=== PATIENT | female | born 1975 | race Caucasian/White ===

== ENCOUNTER 2018-08-24 15:15 | Emergency (ER) | payer OTHER ==
[~2018-08-24] VITALS: Ht 162.6 cm; Wt 109.3 kg
[~2018-08-24 15:15] MED LIST: ANTACID500 MG PO; IBUPROFEN 600600 M1 PO; MOBIC7.5 M1 PO; ROBAXIN 750 MG750 MG PO; ULTRAM 50MG TAB50 MG PO
[2018-08-24] MEDS ORDERED: NOHOMEMEDICATIONS (15:24)
[2018-08-24 15:49] LABS: ABSOLUTE BASOPHILS 0.1 thou/uL (0.0-0.2); ABSOLUTE EOSINOPHILS 0.1 thou/uL (0.0-0.7); ABSOLUTE LYMPHOCYTES 1.7 thou/uL (0.8-5.3); ABSOLUTE MONOCYTES 0.7 thou/uL (0.0-1.2); BASOPHILS 0.7 %; EOSINOPHILS 1.1 %; HEMOGLOBIN 13.3 gm/dL (12.0-15.0); LYMPHOCYTES 20.2 %; MCH 29.8 pg (26.0-34.0); MCHC 33.2 g/dL (28.0-37.0); MCV 89.8 fL (80.0-100.0); MONOCYTES 7.9 %; MPV 7.8 fl. (7.2-11.1); NUCLEATED RBCS 0 /100WBC; PLATELET COUNT* 404 thou/uL (150-400); POLYS 70.1 %; RBC 4.45 mil/uL (4.20-5.00); RDW-CV 13.5 % (10.5-14.5); WBC 8.5 thou/uL (4.0-11.0)
[2018-08-24 15:57] LABS: URINE BILIRUBIN NEGATIVE (Negative); URINE BLOOD NEGATIVE (Negative); URINE CLARITY CLEAR; URINE COLOR YELLOW; URINE GLUCOSE-RANDOM NEGATIVE (Negative); URINE KETONES NEGATIVE (Negative); URINE LEUKOCYTES-REFLEX NEGATIVE (Negative); URINE NITRITE-REFLEX NEGATIVE (Negative); URINE PROTEIN NEGATIVE (Negative); URINE SPECIFIC GRAVITY <= 1.005 (1.005-1.030); URINE UROBILINOGEN 0.2 E.U./dl (0.2-1.0)
[2018-08-24 16:20] LABS: ANION GAP 9 mmol/L (7-16); BUN 11 mg/dL (7-18); CHLORIDE 103 mmol/L (98-107); CO2 29 mmol/L (21-32); CREATININE 0.8 mg/dL (0.6-1.3); GLUCOSE 92 mg/dL (70-99); POTASSIUM 3.9 mmol/L (3.5-5.1); SODIUM 141 mmol/L (136-145); TROPONIN-I LEVEL <0.06 ng/mL (<0.06)
[2018-08-24 16:26] LABS: ALBUMIN 4.1 g/dL (3.4-5.0); ALKALINE PHOSPHATASE 82 U/L (46-116); LIPASE 79 U/L (73-393); NT-PRO BRAIN NAT PEPTIDE 20 pg/mL (<300); SGOT 23 U/L (15-37); SGPT 36 U/L (30-65); TOTAL BILIRUBIN 0.5 mg/dL (<0.1-1.0)
[2018-08-24 17:03] VITALS: BP 139/80
[2018-08-25 02:10] LABS: T3 UPTAKE 24 % (24-39)
--- NOTE | 2018-08-25 11:41 | EKG ---
[place] [address] ELECTROCARDIOGRAM REPORT Name: DESTINEE VIDAL Room: [facility]#: [id number] Admission: 08/24/18 Attend Phys: Discharge: 08/24/18 Date of : 73 Report #: [id number] THIS REPORT FOR: //name// [facility] ED Test Date: 2018-08-24 Test Time: 15:19:41 Pat Name: DESTINEE VIDAL Department: Room: Gender: F Supervisor Production Department: ALIX : 1975 Requested By: Keith Castillo Order Number: [id number] MD: Brandon Julien Measurements Intervals [place] Rate: 107 P: 21 AR: 158 QRS: 76 QRSD: 91 T: 8 QT: 355 QTc: 474 Interpretive Statements Sinus tachycardia No previous ECG available for comparison Electronically Signed On 08-25-2018 11:41:03 CDT by Brandon Julien [email or web address] <ELECTRONICALLY SIGNED> By: Brandon Julien MD, [facility] 08/25/18 1141 1519 1519 Brandon Julien MD, FACC /EPI
--- NOTE | 2018-08-28 14:27 | 24HR ---
[place] [address] HOLTER MONITOR REPORT Name: DESTINEE VIDAL Room: [facility]#: [id number] Admission: 08/24/18 Attend Phys: Discharge: 08/24/18 Date of : 73 Date of Service: 08/28/18 1151 Report #: [id number] THIS REPORT FOR: //name// [facility] Test Date: 2018-08-28 Test Time: 11:51:15 Pat Name: DESTINEE VIDAL Department: Room: Gender: Copy Clerk: : 1975 Requested By: Keith Castillo Order Number: [id number] MD: Sandor Daniel Interpretive Statements 1. sinus rhythm with sinus bradycardia and tachycardia 2. rare pvc and couplet 3. rare pac 4. symptoms did not correlate with an arrhythmia Electronically Signed On 08-28-2018 14:27:10 CDT by Sandor Daniel [email or web address] <ELECTRONICALLY SIGNED> By: Sandor Daniel MD, [facility] 08/28/18 1427 1151 1151 Sandor Daniel MD, FACC /EPI
== END 2018-08-24 17:05 | disposition home or self-care (01) ==
LOC: M.ERS 15:15
PROVIDERS: Emergency Medicine
DX: R00.2 Palpitations (principal)